=== PATIENT | female | born 1965 | race Caucasian/White ===

== ENCOUNTER 2017-05-21 10:08 | Emergency (ER) | payer OTHER ==
[~2017-05-21] VITALS: Ht 160 cm; Wt 68.0 kg
[~2017-05-21 10:08] MED LIST: FLOXIN PO; MOTRIN; PIRIDIUM
== END 2017-05-21 12:52 | disposition home or self-care (01) ==
LOC: ER 10:08
DX: R07.89 Other chest pain (principal); M54.89 Other dorsalgia

== ENCOUNTER 2017-10-05 07:31 | Emergency (ER) | payer OTHER ==
[~2017-10-05] VITALS: Ht 160 cm; Wt 70.8 kg
== END 2017-10-05 10:29 | disposition home or self-care (01) ==
LOC: ER 07:31
DX: B34.9 Viral infection, unspecified (principal)